=== PATIENT | female | born 1940 | race Caucasian/White ===

== ENCOUNTER 2017-04-18 13:37 | Outpatient (CLI) | payer MEDICARE, BC ==
[2017-04-19 21:09] LABS: Chlamydia by PCR Not Detected (NotDetected); GC by PCR Not Detected (NotDetected)
== END 2017-04-18 13:38 | disposition home or self-care (01) ==
LOC: NAVSJIPCSP 13:37
DX: N89.8 Other specified noninflammatory disorders of vagina (principal)
CPT/HCPCS: 87480; 87491; 87510; 87591; 87660